=== PATIENT | male | born 2000 | race Asian ===

== ENCOUNTER 2024-01-24 01:06 | Inpatient (IN) | payer MEDICAID, OTHER ==
[~2024-01-24] VITALS: Ht 162.6 cm; Wt 52.8 kg
[2024-01-24 01:40] LABS: BASOPHILS % (AUTO) 0.4 % (0.0-2.0); EOSINOPHILS % (AUTO) 0.4 % (1.0-6.0); HEMATOCRIT 48.7 % (41-53); HEMOGLOBIN 17.2 g/dL (13.5-17.5); LYMPHOCYTES # (AUTO) 1.3 K/uL (1.0-4.8); MEAN CORPUSCULAR HEMOGLOBIN 34.1 pg (26.0-34.0); MEAN CORPUSCULAR HGB CONC 35.4 G/dL (31.0-37.0); MEAN CORPUSCULAR VOLUME 97 fL (80-100); MONOCYTES # (AUTO) 0.9 K/uL (0.1-1.0); MONOCYTES % (AUTO) 9.6 % (2.0-9.0); NEUTROPHILS # (AUTO) 7.5 K/uL (1.8-7.7); NEUTROPHILS % (AUTO) 76.6 % (40.0-70.0); PLATELET COUNT (AUTO) 237 K/uL (150-450); RED BLOOD CELL COUNT(AUTO) 5.04 MIL/uL (4.50-5.90); RED CELL DISTRIBUTION WIDTH 12.6 % (11.5-14.5); WHITE BLOOD COUNT (AUTO) 9.8 K/uL (4.5-11.0)
[2024-01-24 01:51] LABS: ALCOHOL, BLOOD (SERUM) < 3 mg/dL (0-10); ANION GAP 13 mmol/L (8-16); CALCIUM, TOTAL 9.1 mg/dL (8.8-10.5); CARBON DIOXIDE 26 mmol/L (22-29); CHLORIDE 108 mmol/L (98-107); CREATININE 1.14 mg/dL (0.60-1.30); GLOMERULAR FILTR. RATE CALC > 60 mL/min (>60); GLUCOSE,RANDOM 158 mg/dL (70-110); POTASSIUM 3.9 mmol/L (3.5-5.1); SODIUM SERUM 147 mmol/L (136-145); UREA NITROGEN, BLOOD 18 mg/dL (7-18)
[2024-01-24 01:56] LABS: ALANINE AMINOTRANSFERASE 23 U/L (12-78); ALBUMIN 4.3 g/dL (3.4-5.0); ALKALINE PHOSPHATASE 81 U/L (46-116); ASPARTATE AMINOTRANSFERASE 18 U/L (15-37); TOTAL PROTEIN, SERUM 7.8 g/dL (6.4-8.2)
[2024-01-24] MEDS: SODIUM CHLORIDE 0.9% 1,000 ML IV ONE (02:50)
[2024-01-24] MEDS: LORazepam 1 MG TABLET PO ONE (02:50)
[2024-01-24] MEDS: HALOPERIDOL 5 MG TABLET PO ONE (02:50)
[2024-01-24 04:06] LABS: COVID AG,FIA SOURCE NASAL SWAB
[2024-01-24] MEDS ORDERED: HALOPERIDOL 5 MG TABLET PO PRN (04:45)
[2024-01-24] MEDS ORDERED: LORazepam 2 MG TABLET PO PRN (04:45)
[2024-01-24] MEDS ORDERED: ZOLPIDEM TARTRATE 10 MG TABLET PO PRN (04:45)
[2024-01-24 04:54] LABS: SARS-COV2 (COVID) ANTIGEN,FIA Negative (Negative)
[2024-01-24 09:41] VITALS: BP 139/90; PULSE 85; RESP 18; TEMP 97.7; O2SAT 100
[2024-01-24] MEDS ORDERED: PNEUMOCOCCAL VACCINE POLYVALENT 0.5 ML SYRINGE [PPSV23] IM. ONE (10:30)
[2024-01-24] MEDS ORDERED: NICOTINE 14 MG/24 HOUR PATCH TD PRN (15:00)
[2024-01-24] MEDS ORDERED: ACETAMINOPHEN 325 MG TABLET PO PRN (15:00)
[2024-01-24] MEDS ORDERED: ONDANSETRON HCL 4 MG TABLET PO PRN (15:00)
[2024-01-24] MEDS ORDERED: GuaiFENesin/D-METHORPHAN [SUGAR-FREE] 200-20MG/10 ML SYRUP UDCUP PO PRN (15:00)
[2024-01-24] MEDS ORDERED: MAGNESIUM HYDROXIDE SUSPENSION 30 ML UDCUP PO PRN (15:00)
[2024-01-24] MEDS ORDERED: ALBUTEROL SULFATE HFA 90 MCG/PUFF 8 GM INHALER IH PRN (15:00)
[2024-01-24] MEDS ORDERED: LOPERAMIDE HCL 2 MG CAPSULE PO PRN (15:00)
[2024-01-24] MEDS ORDERED: MAG HYDROX/ALUMINUM HYD/SIMETH ES 30 ML SUSPENSION UDCUP PO PRN (15:00)
[2024-01-24] MEDS ORDERED: PETROLATUM,WHITE 28 GM JELLY TP PRN (15:00)
[2024-01-24] MEDS ORDERED: CloNIDine HCL 0.1 MG TABLET PO PRN (15:00)
[2024-01-24] MEDS ORDERED: IBUPROFEN 400 MG TABLET PO PRN (15:00)
[2024-01-24] MEDS ORDERED: DOCUSATE SODIUM 100 MG CAPSULE PO PRN (15:00)
[2024-01-24 22:54] VITALS: BP 134/72; PULSE 94; RESP 18; TEMP 98; O2SAT 97
[2024-01-25 07:46] LABS: HEMOGLOBIN A1C 4.8 % (3.8-5.6)
[2024-01-25 08:00] LABS: ANION GAP 10 mmol/L (8-16); CARBON DIOXIDE 28 mmol/L (22-29); CHLORIDE 104 mmol/L (98-107); CREATININE 1.02 mg/dL (0.60-1.30); GLOMERULAR FILTR. RATE CALC > 60 mL/min (>60); GLUCOSE,RANDOM 99 mg/dL (70-110); POTASSIUM 3.8 mmol/L (3.5-5.1); SODIUM SERUM 142 mmol/L (136-145); THYROID STIMULATING HORMONE 1.35 uIU/mL (0.36-3.74); UREA NITROGEN, BLOOD 21 mg/dL (7-18)
[2024-01-25 08:22] VITALS: BP 144/87; PULSE 102; RESP 17; TEMP 97.3; O2SAT 100
[2024-01-25 10:05] LABS: CHOLESTEROL 173 mg/dL (131-200); HDL CHOLESTEROL 57 mg/dL (40-60); LDL CHOL (CALC.) 106 mg/dL (0-130); TRIGLYCERIDES 51 mg/dL (15-150)
[2024-01-25 20:44] VITALS: RESP 18
[2024-01-26 08:19] VITALS: BP 139/84; PULSE 91; RESP 17; TEMP 97.8; O2SAT 99
[2024-01-26 21:27] VITALS: BP 139/82; PULSE 84; RESP 17; TEMP 96.9
[2024-01-27 08:33] VITALS: BP 150/80; PULSE 83; RESP 18; TEMP 98; O2SAT 97
[2024-01-27 09:56] LABS: APPEARANCE,URINE CLEAR (CLEAR); BILIRUBIN,URINE NEGATIVE (NEGATIVE); COLOR,URINE YELLOW (YELLOW); GLUCOSE, URINE (UA) 300-500 mg/dL (NEGATIVE); KETONES,URINE NEGATIVE (NEGATIVE); LEUKOCYTE ESTERASE ,URINE NEGATIVE (NEGATIVE); NITRATE,URINE NEGATIVE (NEGATIVE); OCCULT BLOOD,URINE TRACE (NEGATIVE); PROTEIN,URINE NEGATIVE (NEGATIVE); SPECIFIC GRAVITIY, URINE 1.029 (1.003-1.030); UROBILINOGEN,URINE <=1.0 mg/dL (<=1.0)
[2024-01-27 10:14] LABS: BACTERIA,URINE Rare /HPF (None Seen); RBC,URINE 0-2 /HPF (0-2); SQUAMOUS EPITHELIAL CELL,UR Rare /LPF (None Seen); WBC,URINE 0-2 /HPF (0-5)
[2024-01-27 10:40] LABS: ALCOHOL, URINE DRUG SCREEN NEGATIVE (NEGATIVE); AMPHET/METH SCREEN,URINE NEGATIVE (NEGATIVE); BARBITURATE SCREEN, URINE NEGATIVE (NEGATIVE); BENZODIAZEPINES SCREEN,URINE NEGATIVE (NEGATIVE); CANNABINOID SCREEN,URINE POSITIVE (NEGATIVE); COCAINE SCREEN,URINE NEGATIVE (NEGATIVE); METHADONE SCREEN, URINE NEGATIVE (NEGATIVE); OPIATE SCREEN,URINE NEGATIVE (NEGATIVE); PHENCYCLIDINE SCREEN,URINE NEGATIVE (NEGATIVE)
[2024-01-27 20:56] VITALS: BP 127/73; PULSE 79; RESP 19; TEMP 97.7; O2SAT 98
[2024-01-28 09:48] VITALS: BP 117/80; PULSE 67; RESP 17; TEMP 97.8; O2SAT 99
== END 2024-01-28 17:51 | disposition home or self-care (01) | DRG 750 ==
LOC: EDBD 01:08 → EMS 01:08 → 3EC 04:56
PROVIDERS: ADMIT Psychiatry & Neurology Child & Adolescent Psychiatry; ATTEND Psychiatry & Neurology Child & Adolescent Psychiatry
PROC: GZ52ZZZ Individual Psychotherapy, Cognitive (ICD-10-PCS; principal; 2024-01-25)
DX: F20.9 Schizophrenia, unspecified (principal); E87.0 Hyperosmolality and hypernatremia; F32.9 Major depressive disorder, single episode, unspecified; F29 Unspecified psychosis not due to a substance or known physiological condition; E86.0 Dehydration; Z20.822 Contact with and (suspected) exposure to COVID-19; F79 Unspecified intellectual disabilities; R17 Unspecified jaundice; R73.9 Hyperglycemia, unspecified
CPT/HCPCS: 80048; 80053; 80061; 80307; 81001; 83036; 84443; 85025; 99285; G0480; J7030

== ENCOUNTER 2025-02-09 19:15 | Emergency (ER) | payer MEDICAID, OTHER ==
[~2025-02-09] VITALS: Ht 160 cm; Wt 61.4 kg
[2025-02-09 19:24] VITALS: BP 147/83; PULSE 98; RESP 16; TEMP 98.5; O2SAT 99
== END 2025-02-09 19:45 ==
LOC: EMS 19:15
DX: T65.891A Toxic effect of other specified substances, accidental (unintentional), initial encounter (principal); H10.213 Acute toxic conjunctivitis, bilateral; Y92.89 Other specified places as the place of occurrence of the external cause
CPT/HCPCS: 99283; Z7502